=== PATIENT | male | born 1955 | race Caucasian/White ===

== ENCOUNTER 2018-02-22 15:27 | Emergency (ER) | payer OTHER ==
[~2018-02-22] VITALS: Ht 167.6 cm; Wt 59.0 kg
[2018-02-22 15:38] VITALS: BP_SYST 112; BP_SYST 131; BP_DIAS 75; BP_DIAS 88
[2018-02-22 17:55] VITALS: BP 120/70
== END 2018-02-22 17:55 | disposition home or self-care (01) ==
LOC: MED 15:27
DX: F10.129 Alcohol abuse with intoxication, unspecified (principal); F17.200 Nicotine dependence, unspecified, uncomplicated; R03.0 Elevated blood-pressure reading, without diagnosis of hypertension
CPT/HCPCS: 99283